=== PATIENT | male | born 1985 | race Caucasian/White ===

== ENCOUNTER 2017-02-17 16:33 | Emergency (ER) | payer SELFPAY ==
[~2017-02-17] VITALS: Ht 172.7 cm; Wt 85.0 kg
[2017-02-17 18:55] VITALS: BP 132/96
== END 2017-02-17 19:28 | disposition home or self-care (01) ==
LOC: EMS 16:36
DX: R21 Rash and other nonspecific skin eruption (principal)
CPT/HCPCS: 99282